=== PATIENT | male | born 1960 | race Two or more races ===

== ENCOUNTER 2023-03-29 10:50 | Inpatient (IN) | payer OTHER ==
[2023-03-29] MEDS ORDERED: ACETAMINOPHEN 1000 MG/100 ML BAG IVPB ONE (12:29)
[2023-03-29] MEDS ORDERED: ACETAMINOPHEN INJECTION 100 ML IVPB ONE (12:47)
[2023-03-29 12:55] LABS: BASO % 0.3 % (0-2.0); EOS % 2.7 % (0-4.5); HEMATOCRIT 34.6 % (35.4-49); HEMOGLOBIN 11.6 GM/dL (11.7-16.9); LYMPH % 20.1 % (8-40); MCH 30.5 pg (25.7-33.7); MCHC 33.4 g/dl (32.0-35.9); MEAN CELL VOLUME 91.3 fl (80-96); MEAN PLT VOLUME 7.9 fl (7.5-11.1); NEUT % 67.9 % (42.8-82.8); PLATELET COUNT 187 10^3/uL (134-434); RBC 3.79 M/mm3 (4.00-5.60); RDW 14.9 % (11.9-15.9); WHITE BLOOD COUNT 10.6 K/mm3 (4.0-10.0)
[2023-03-29 13:12] LABS: VENOUS BASE EXCESS -4.1 mmol/L (-2-2); VENOUS O2 SATURATION 76.8 % (70-80); VENOUS PCO2 39.9 mmHg (38-52); VENOUS PH 7.344 (7.310-7.410)
[2023-03-29 13:17] LABS: CHLORIDE 104 mmol/L (98-107); POTASSIUM 5.9 mmol/L (3.5-5.1); SODIUM 137 mmol/L (136-145)
[2023-03-29 13:20] LABS: ALBUMIN 3.6 g/dl (3.4-5.0); ANION GAP 8 MMOL/L (8-16); BLOOD UREA NITROGEN 61.7 mg/dL (7-18); CALCIUM 9.2 mg/dL (8.5-10.1); CO2 25 mmol/L (21-32); GLUCOSE,RANDOM 97 mg/dL (74-106); MAGNESIUM 2.4 mg/dL (1.8-2.4)
[2023-03-29 13:23] LABS: PHOSPHOROUS 5.4 mg/dL (2.5-4.9); SGOT/AST 114 U/L (15-37); SGPT/ALT 329 U/L (13-61)
[2023-03-29 13:25] LABS: BILIRUBIN,TOTAL 0.6 mg/dL (0.2-1); TOT PROT 7.6 g/dl (6.4-8.2)
[2023-03-29 13:26] LABS: ALK PHOS 159 U/L (45-117)
[2023-03-29 13:28] LABS: N-TERMINAL BNP 1703.5 pg/ml (5-125)
[2023-03-29 13:30] LABS: CREATININE 11.6 mg/dL (0.55-1.3)
[2023-03-29] MEDS ORDERED: CALCIUM GLUCONATE 10% - 1,000 MG/10 ML VIAL IVPB ONE (13:34)
[2023-03-29] MEDS ORDERED: INSULIN REGULAR HUMAN 100 UNITS/ML *VIAL IVPUSH ONE (13:34)
[2023-03-29] MEDS ORDERED: DEXTROSE 50%-WATER - 25 GM/50 ML VIAL IVPUSH ONE (13:35)
[2023-03-29] MEDS ORDERED: SODIUM ZIRCONIUM CYCLOSILICATE (LOKELMA) 5 GM PACKET PO ONE (13:36)
[2023-03-29] MEDS ORDERED: SODIUM ZIRCONIUM CYCLOSILICATE (LOKELMA) 10 GM PACKET ONE (13:52)
[2023-03-29] MEDS ORDERED: CALCIUM GLUC IN NACL, ISO-OSM 1 GM/50 ML BAG IVPB ONE ×2 (13:52→13:57)
[2023-03-29] MEDS ORDERED: DEXTROSE 50%-WATER 25 GM/50 ML DISP.SYRIN ONE (13:52)
[2023-03-29] MEDS ORDERED: SODIUM ZIRCONIUM CYCLOSILICATE (LOKELMA) 5 GM PACKET ONE (13:56)
[2023-03-29] MEDS ORDERED: VANCOMYCIN 1,000 MG in DEXTROSE 5%-WATER - 250 ML IVPB ONE (19:13)
[2023-03-29] MEDS ORDERED: VANCOMYCIN/WATER FOR INJ (PEG) 1,000 MG/200 ML BAG IVPB ONE (20:15)
[2023-03-29] MEDS ORDERED: SODIUM CHLORIDE 250 ML IV PRN (21:53)
[2023-03-30 06:52] LABS: HEMATOCRIT 36.4 % (35.4-49); HEMOGLOBIN 12.1 GM/dL (11.7-16.9); MCH 30.7 pg (25.7-33.7); MCHC 33.1 g/dl (32.0-35.9); MEAN CELL VOLUME 92.8 fl (80-96); MEAN PLT VOLUME 7.8 fl (7.5-11.1); PLATELET COUNT 207 10^3/uL (134-434); RBC 3.92 M/mm3 (4.00-5.60); RDW 14.7 % (11.9-15.9); WHITE BLOOD COUNT 11.3 K/mm3 (4.0-10.0)
[2023-03-30 07:15] LABS: CHLORIDE 101 mmol/L (98-107); SODIUM 134 mmol/L (136-145)
[2023-03-30 07:18] LABS: ALBUMIN 3.5 g/dl (3.4-5.0); BLOOD UREA NITROGEN 71.6 mg/dL (7-18); GLUCOSE,RANDOM 92 mg/dL (74-106)
[2023-03-30 07:20] LABS: CO2 22 mmol/L (21-32); MAGNESIUM 2.2 mg/dL (1.8-2.4)
[2023-03-30 07:21] LABS: PHOSPHOROUS 5.6 mg/dL (2.5-4.9); SGOT/AST 109 U/L (15-37); SGPT/ALT 302 U/L (13-61)
[2023-03-30 07:23] LABS: BILIRUBIN,TOTAL 0.8 mg/dL (0.2-1); TOT PROT 7.5 g/dl (6.4-8.2)
[2023-03-30 07:24] LABS: ALK PHOS 161 U/L (45-117)
[2023-03-30 07:27] LABS: ANION GAP 12 MMOL/L (8-16); CREATININE 12.7 mg/dL (0.55-1.3)
[2023-03-30] MEDS ORDERED: INSULIN REGULAR HUMAN 100 UNITS/ML *VIAL IVPUSH ONE (07:53)
[2023-03-30] MEDS ORDERED: CALCIUM GLUCONATE 10% - 1,000 MG/10 ML VIAL IVPB ONE (07:53)
[2023-03-30] MEDS ORDERED: SODIUM BICARBONATE 8.4% 50 MEQ/50 ML DISP.SYRIN IVPUSH ONE (07:53)
[2023-03-30] MEDS ORDERED: DEXTROSE 50%-WATER - 25 GM/50 ML VIAL IVPUSH ONE (07:53)
[2023-03-30] MEDS ORDERED: DEXTROSE 50%-WATER 25 GM/50 ML DISP.SYRIN ONE (08:06)
[2023-03-30] MEDS ORDERED: SODIUM BICARBONATE 8.4% 50 MEQ/50 ML DISP.SYRIN ONE (08:07)
[2023-03-30] MEDS ORDERED: CALCIUM GLUC IN NACL, ISO-OSM 1 GM/50 ML BAG IVPB ONE (08:07)
[2023-03-30] MEDS ORDERED: HEPARIN NA (PORCINE) 5,000 UNITS/ML 1ML VIAL IV ONE (12:06)
[2023-03-30 14:25] VITALS: BMI 29.4
[2023-03-30] MEDS ORDERED: CLINDAMYCIN 600MG PREMIX IVPB 600 MG/50 ML BAG IVPB SCH (15:15)
[2023-03-30] MEDS: MEROPENEM 1 GM in DEXTROSE 5%-WATER 100 ML IVPB SCH (16:27)
[2023-03-30] MEDS: CLINDAMYCIN 600MG PREMIX IVPB 600 MG/50 ML BAG IVPB SCH (18:18)
[2023-03-31] MEDS: CLINDAMYCIN 600MG PREMIX IVPB 600 MG/50 ML BAG IVPB SCH ×3 (02:59→17:55)
[2023-03-31] MEDS: MEROPENEM 1 GM in DEXTROSE 5%-WATER 100 ML IVPB SCH ×3 (02:59→18:55)
[2023-03-31 11:56] LABS: CHLORIDE 100 mmol/L (98-107); POTASSIUM 4.6 mmol/L (3.5-5.1); SODIUM 139 mmol/L (136-145)
[2023-03-31 13:08] LABS: SGPT/ALT 236 U/L (13-61)
[2023-03-31 13:12] LABS: CALCIUM 8.8 mg/dL (8.5-10.1)
[2023-03-31 13:13] LABS: ALBUMIN 3.4 g/dl (3.4-5.0); ANION GAP 10 MMOL/L (8-16); BLOOD UREA NITROGEN 48.9 mg/dL (7-18); CO2 29 mmol/L (21-32); GLUCOSE,RANDOM 120 mg/dL (74-106)
[2023-03-31 13:16] LABS: BILIRUBIN,TOTAL 0.7 mg/dL (0.2-1); SGOT/AST 103 U/L (15-37)
[2023-03-31 13:18] LABS: TOT PROT 6.8 g/dl (6.4-8.2)
[2023-03-31 13:37] LABS: ALK PHOS 124 U/L (45-117); CREATININE 9.8 mg/dL (0.55-1.3)
[2023-04-01 00:01] LABS: COCAINE, UR NEGATIVE (NEGATIVE); OPIATES, URI NEGATIVE (NEGATIVE)
[2023-04-01 00:02] LABS: URINE BARBITURATES NEGATIVE (NEGATIVE)
[2023-04-01 00:04] LABS: URINE BENZODIAZEPINES NEGATIVE (NEGATIVE)
[2023-04-01 00:45] LABS: METHADONE, UR NEGATIVE (NEGATIVE); PHENCYCLIDINE,URINE NEGATIVE (NEGATIVE); URINE AMPHETAMINES NEGATIVE (NEGATIVE)
[2023-04-01] MEDS: CLINDAMYCIN 600MG PREMIX IVPB 600 MG/50 ML BAG IVPB SCH ×3 (01:58→18:24)
[2023-04-01] MEDS: MEROPENEM 1 GM in DEXTROSE 5%-WATER 100 ML IVPB SCH ×3 (01:58→21:12)
[2023-04-01] MEDS ORDERED: SODIUM CHLORIDE 250 ML IV PRN ×2 (07:14→10:21)
[2023-04-01] MEDS ORDERED: HEPARIN NA (PORCINE) 5,000 UNITS/ML 1ML VIAL IVPUSH ONE (07:15)
[2023-04-01 08:48] LABS: BASO % 0.4 % (0-2.0); EOS % 5.2 % (0-4.5); HEMATOCRIT 32.4 % (35.4-49); HEMOGLOBIN 10.7 GM/dL (11.7-16.9); LYMPH % 12.3 % (8-40); MCH 30.5 pg (25.7-33.7); MEAN CELL VOLUME 92.5 fl (80-96); MEAN PLT VOLUME 7.8 fl (7.5-11.1); MONO % 8.8 % (3.8-10.2); NEUT % 73.3 % (42.8-82.8); PLATELET COUNT 167 10^3/uL (134-434); RBC 3.51 M/mm3 (4.00-5.60); RDW 14.6 % (11.9-15.9); WHITE BLOOD COUNT 8.5 K/mm3 (4.0-10.0)
[2023-04-01 09:02] LABS: CHLORIDE 100 mmol/L (98-107); POTASSIUM 4.4 mmol/L (3.5-5.1); SODIUM 137 mmol/L (136-145)
[2023-04-01 09:09] LABS: ALBUMIN 3.4 g/dl (3.4-5.0); ANION GAP 12 MMOL/L (8-16); BLOOD UREA NITROGEN 58.5 mg/dL (7-18); CALCIUM 8.3 mg/dL (8.5-10.1); CO2 25 mmol/L (21-32); GLUCOSE,RANDOM 124 mg/dL (74-106)
[2023-04-01 09:12] LABS: SGOT/AST 133 U/L (15-37); SGPT/ALT 242 U/L (13-61)
[2023-04-01 09:14] LABS: BILIRUBIN,TOTAL 0.7 mg/dL (0.2-1); TOT PROT 6.7 g/dl (6.4-8.2)
[2023-04-01 09:15] LABS: ALK PHOS 119 U/L (45-117)
[2023-04-01 09:27] LABS: CREATININE 11.3 mg/dL (0.55-1.3)
[2023-04-01] MEDS ORDERED: ACETAMINOPHEN 325 MG TABLET (FP) PO PRN (16:37)
[2023-04-02] MEDS: CLINDAMYCIN 600MG PREMIX IVPB 600 MG/50 ML BAG IVPB SCH ×2 (00:59→12:19)
[2023-04-02] MEDS: MEROPENEM 1 GM in DEXTROSE 5%-WATER 100 ML IVPB SCH ×3 (02:57→17:00)
[2023-04-02] MEDS: amLODIPine BESYLATE 5 MG TABLET (FP) PO SCH (17:56)
[2023-04-03] MEDS: MEROPENEM 1 GM in DEXTROSE 5%-WATER 100 ML IVPB SCH ×3 (02:08→17:20)
[2023-04-03 08:10] LABS: BASO % 0.3 % (0-2.0); EOS % 11.1 % (0-4.5); HEMOGLOBIN 11.5 GM/dL (11.7-16.9); MCH 31.2 pg (25.7-33.7); MCHC 34.8 g/dl (32.0-35.9); MEAN CELL VOLUME 89.5 fl (80-96); MEAN PLT VOLUME 7.3 fl (7.5-11.1); MONO % 12.9 % (3.8-10.2); NEUT % 53.7 % (42.8-82.8); PLATELET COUNT 161 10^3/uL (134-434); RBC 3.68 M/mm3 (4.00-5.60); RDW 14.5 % (11.9-15.9); WHITE BLOOD COUNT 7.8 K/mm3 (4.0-10.0)
[2023-04-03 08:30] LABS: CHLORIDE 100 mmol/L (98-107); POTASSIUM 4.1 mmol/L (3.5-5.1); SODIUM 140 mmol/L (136-145)
[2023-04-03 08:51] LABS: CALCIUM 8.4 mg/dL (8.5-10.1)
[2023-04-03 08:52] LABS: ALBUMIN 3.3 g/dl (3.4-5.0); ANION GAP 12 MMOL/L (8-16); BLOOD UREA NITROGEN 37.3 mg/dL (7-18); CO2 28 mmol/L (21-32); GLUCOSE,RANDOM 87 mg/dL (74-106)
[2023-04-03 08:55] LABS: SGOT/AST 165 U/L (15-37); SGPT/ALT 256 U/L (13-61)
[2023-04-03 08:56] LABS: BILIRUBIN,TOTAL 0.6 mg/dL (0.2-1); TOT PROT 7.1 g/dl (6.4-8.2)
[2023-04-03 08:57] LABS: ALK PHOS 119 U/L (45-117); CREATININE 7.6 mg/dL (0.55-1.3)
[2023-04-03] MEDS: amLODIPine BESYLATE 5 MG TABLET (FP) PO SCH (09:47)
[2023-04-03] MEDS: SEVELAMER CARBONATE 800 MG TAB (FP) PO SCH ×2 (12:24→17:20)
[2023-04-04] MEDS: CLINDAMYCIN 600MG PREMIX IVPB 600 MG/50 ML BAG IVPB SCH ×3 (02:23→17:52)
[2023-04-04] MEDS: VITAMIN B COMP W-C 1 EA TABLET (NEPHRO-VITE) PO SCH (09:37)
[2023-04-04] MEDS: amLODIPine BESYLATE 5 MG TABLET (FP) PO SCH (09:37)
[2023-04-04] MEDS: AZTREONAM 1 GM in DEXTROSE 5%-WATER - 50 ML IVPB SCH (09:38)
[2023-04-04] MEDS ORDERED: AZTREONAM 1 GM VIAL (RESTRICTED TO ID) ONE (09:41)
[2023-04-04] MEDS: SEVELAMER CARBONATE 800 MG TAB (FP) PO SCH ×3 (09:42→17:52)
[2023-04-05] MEDS: CLINDAMYCIN 600MG PREMIX IVPB 600 MG/50 ML BAG IVPB SCH ×3 (02:18→18:31)
[2023-04-05 07:57] LABS: CHLORIDE 101 mmol/L (98-107); POTASSIUM 4.3 mmol/L (3.5-5.1); SODIUM 140 mmol/L (136-145)
[2023-04-05 08:01] LABS: CALCIUM 7.8 mg/dL (8.5-10.1)
[2023-04-05 08:02] LABS: ANION GAP 14 MMOL/L (8-16); BLOOD UREA NITROGEN 60.2 mg/dL (7-18); CO2 24 mmol/L (21-32); GLUCOSE,RANDOM 90 mg/dL (74-106)
[2023-04-05 08:20] LABS: CREATININE 11.4 mg/dL (0.55-1.3)
[2023-04-05] MEDS: SEVELAMER CARBONATE 800 MG TAB (FP) PO SCH ×3 (08:20→16:36)
[2023-04-05] MEDS: amLODIPine BESYLATE 5 MG TABLET (FP) PO SCH (12:33)
[2023-04-05] MEDS: VITAMIN B COMP W-C 1 EA TABLET (NEPHRO-VITE) PO SCH (12:33)
[2023-04-05] MEDS: AZTREONAM 1 GM in DEXTROSE 5%-WATER - 50 ML IVPB SCH (12:33)
[2023-04-05 12:36] LABS: HEMATOCRIT 30.3 % (35.4-49); HEMOGLOBIN 10.2 GM/dL (11.7-16.9); MCH 30.3 pg (25.7-33.7); MCHC 33.6 g/dl (32.0-35.9); MEAN CELL VOLUME 90.1 fl (80-96); MEAN PLT VOLUME 7.5 fl (7.5-11.1); PLATELET COUNT 173 10^3/uL (134-434); RBC 3.37 M/mm3 (4.00-5.60); RDW 14.9 % (11.9-15.9); WHITE BLOOD COUNT 7.2 K/mm3 (4.0-10.0)
[2023-04-05 12:46] LABS: ALBUMIN 3.1 g/dl (3.4-5.0)
[2023-04-05 12:49] LABS: PHOSPHOROUS 8.1 mg/dL (2.5-4.9); SGOT/AST 113 U/L (15-37); SGPT/ALT 171 U/L (13-61)
[2023-04-05 12:50] LABS: BILIRUBIN,TOTAL 0.5 mg/dL (0.2-1); TOT PROT 6.7 g/dl (6.4-8.2)
[2023-04-05 12:52] LABS: ALK PHOS 106 U/L (45-117)
[2023-04-05 12:57] LABS: ANISOCYTOSIS 0; HELMET CELLS 0; HOWELL-JOLLY BODIES 0; MACROCYTOSIS 0; OVALOCYTE 0; ROULEAU 0; SICKELED CELLS 0; TARGET CELLS 0; TEAR DROP CELLS 0; TOXIC GRANULATION 0
[2023-04-05 13:51] LABS: GAMMA GLUTAMYL TRANSPEPTIDASE 251 U/L (5-85)
[2023-04-06] MEDS: CLINDAMYCIN 600MG PREMIX IVPB 600 MG/50 ML BAG IVPB SCH ×2 (01:09→09:23)
[2023-04-06 07:50] LABS: HEMATOCRIT 33.3 % (35.4-49); MCH 30.6 pg (25.7-33.7); MCHC 33.2 g/dl (32.0-35.9); MEAN CELL VOLUME 92.1 fl (80-96); MEAN PLT VOLUME 7.7 fl (7.5-11.1); PLATELET COUNT 207 10^3/uL (134-434); RBC 3.61 M/mm3 (4.00-5.60); RDW 14.6 % (11.9-15.9); WHITE BLOOD COUNT 8.2 K/mm3 (4.0-10.0)
[2023-04-06 08:12] LABS: CHLORIDE 102 mmol/L (98-107); POTASSIUM 4.3 mmol/L (3.5-5.1); SODIUM 142 mmol/L (136-145)
[2023-04-06 08:27] LABS: INR 1.1 (0.83-1.09); PROTHROMBIN TIME (PATIENT) 12.8 SEC (9.7-13.0)
[2023-04-06 08:30] LABS: ALK PHOS 112 U/L (45-117)
[2023-04-06 08:31] LABS: ALBUMIN 3.4 g/dl (3.4-5.0); BILIRUBIN,TOTAL 0.7 mg/dL (0.2-1); BLOOD UREA NITROGEN 47.3 mg/dL (7-18); CALCIUM 7.9 mg/dL (8.5-10.1); GLUCOSE,RANDOM 77 mg/dL (74-106); SGOT/AST 162 U/L (15-37)
[2023-04-06 08:32] LABS: ANION GAP 11 MMOL/L (8-16); CO2 29 mmol/L (21-32); SGPT/ALT 195 U/L (13-61); TOT PROT 7.1 g/dl (6.4-8.2)
[2023-04-06 08:34] LABS: BILIRUBIN,DIRECT 0.3 mg/dL (0.0-0.2)
[2023-04-06 08:47] LABS: CREATININE 8.1 mg/dL (0.55-1.3)
[2023-04-06 09:02] LABS: ANISOCYTOSIS 0; HELMET CELLS 0; HOWELL-JOLLY BODIES 0; MACROCYTOSIS 0; OVALOCYTE 0; ROULEAU 0; SICKELED CELLS 0; TARGET CELLS 0; TEAR DROP CELLS 0; TOXIC GRANULATION 0
[2023-04-06] MEDS: SEVELAMER CARBONATE 800 MG TAB (FP) PO SCH ×3 (09:21→17:15)
[2023-04-06] MEDS: VITAMIN B COMP W-C 1 EA TABLET (NEPHRO-VITE) PO SCH (09:23)
[2023-04-06] MEDS: amLODIPine BESYLATE 5 MG TABLET (FP) PO SCH (09:23)
[2023-04-06] MEDS: AZTREONAM 1 GM in DEXTROSE 5%-WATER - 50 ML IVPB SCH (09:33)
[2023-04-07 03:41] VITALS: RESP 18
[2023-04-07 09:48] LABS: HEMOGLOBIN 10.1 GM/dL (11.7-16.9); MCH 30.6 pg (25.7-33.7); MCHC 33.5 g/dl (32.0-35.9); MEAN CELL VOLUME 91.3 fl (80-96); MEAN PLT VOLUME 7.7 fl (7.5-11.1); PLATELET COUNT 207 10^3/uL (134-434); RBC 3.29 M/mm3 (4.00-5.60); RDW 14.3 % (11.9-15.9); WHITE BLOOD COUNT 7.2 K/mm3 (4.0-10.0)
[2023-04-07] MEDS ORDERED: SODIUM CHLORIDE 250 ML IV PRN (10:03)
[2023-04-07] MEDS ORDERED: HEPARIN NA (PORCINE) 5,000 UNITS/ML 1ML VIAL IVPUSH ONE (11:00)
[2023-04-07] MEDS: AZTREONAM 1 GM in DEXTROSE 5%-WATER - 50 ML IVPB SCH (12:49)
[2023-04-07] MEDS: SEVELAMER CARBONATE 800 MG TAB (FP) PO SCH ×2 (12:49)
[2023-04-07] MEDS: amLODIPine BESYLATE 5 MG TABLET (FP) PO SCH (12:50)
[2023-04-07] MEDS: VITAMIN B COMP W-C 1 EA TABLET (NEPHRO-VITE) PO SCH (12:50)
[2023-04-07 13:00] VITALS: BP 139/90; PULSE 78; TEMP 98.7
[2023-04-07 13:24] LABS: IRON SERUM 107 ug/dL (50-175)
[2023-04-07 13:25] LABS: TOTAL IRON BINDING CAPACITY 145 ug/dL (250-450)
[2023-04-07 15:28] LABS: CALCIUM 7.8 mg/dL (8.5-10.1); CHLORIDE 103 mmol/L (98-107); POTASSIUM 4.4 mmol/L (3.5-5.1); SODIUM 141 mmol/L (136-145)
[2023-04-07 15:30] LABS: ANION GAP 12 MMOL/L (8-16); BLOOD UREA NITROGEN 60.7 mg/dL (7-18); CO2 27 mmol/L (21-32); GLUCOSE,RANDOM 82 mg/dL (74-106)
[2023-04-07 15:37] LABS: CREATININE 9.9 mg/dL (0.55-1.3)
[2023-04-08 18:12] LABS: GLIADIN ANTIBODY IGA 5 units (0-19); GLIADIN ANTIBODY IGG 2 units (0-19); TRANSGLUTAMINASE IGG < 2 U/mL (0-5)
[2023-04-10 18:08] LABS: HCV RNA GENOTYPE 1a (.)
== END 2023-04-07 15:17 | disposition home or self-care (01) | DRG 811 ==
LOC: JER 10:50 → JERBED 15:12 → J4W 03-30 14:01
PROVIDERS: ADMIT Student in an Organized Health Care Education/Training Program; ATTEND Internal Medicine
PROC: 5A1D70Z Performance of Urinary Filtration, Intermittent, Less than 6 Hours Per Day (ICD-10-PCS; principal; 2023-04-01)
PROC: 5A1D70Z Performance of Urinary Filtration, Intermittent, Less than 6 Hours Per Day (ICD-10-PCS; 2023-04-02)
PROC: 5A1D70Z Performance of Urinary Filtration, Intermittent, Less than 6 Hours Per Day (ICD-10-PCS; 2023-04-05)
PROC: 5A1D70Z Performance of Urinary Filtration, Intermittent, Less than 6 Hours Per Day (ICD-10-PCS; 2023-04-07)
DX: T78.3XXA Angioneurotic edema, initial encounter (principal); R22.1 Localized swelling, mass and lump, neck; R22.0 Localized swelling, mass and lump, head; I12.0 Hypertensive chronic kidney disease with stage 5 chronic kidney disease or end stage renal disease; N18.6 End stage renal disease; B19.20 Unspecified viral hepatitis C without hepatic coma; E87.5 Hyperkalemia; I45.10 Unspecified right bundle-branch block; D64.9 Anemia, unspecified; D72.19 Other eosinophilia; E78.5 Hyperlipidemia, unspecified; R74.8 Abnormal levels of other serum enzymes; T50.8X5A Adverse effect of diagnostic agents, initial encounter; R50.9 Fever, unspecified
CPT/HCPCS: 0241U-QW; 36415; 70360-TC-FY; 70492-TC; 71045-TC-FY; 71270-TC; 76705-TC; 80048; 80053; 80076; 80307; 82105; 82550; 82728; 82784; 82803; 82977; 83516; 83540; 83550; 83735; 83880; 84100; 84132; 84443; 84484; 85025; 85027; 85610; 86038; 86704; 86708; 86709; 86803; 87040; 87340; 87517; 87522; 87902; 93005; 93010; 99291; J1644; Q9967

== ENCOUNTER 2023-05-03 13:35 | Emergency (ER) | payer OTHER ==
[2023-05-03 13:56] VITALS: BMI 25.7
[2023-05-03] MEDS ORDERED: ACETAMINOPHEN 500 MG TABLET (FP) PO ONE (15:43)
[2023-05-03] MEDS ORDERED: LIDOCAINE 5% TOPICAL PATCH TP ONE (15:43)
[2023-05-03] MEDS ORDERED: LIDOCAINE 5% TOPICAL PATCH ONE (15:47)
[2023-05-03] MEDS ORDERED: ACETAMINOPHEN 325 MG TABLET (FP) ONE (15:47)
[2023-05-03 15:52] LABS: BASO % 0.6 % (0-2.0); EOS % 5.1 % (0-4.5); HEMATOCRIT 30.9 % (35.4-49); HEMOGLOBIN 10.6 GM/dL (11.7-16.9); LYMPH % 31.7 % (8-40); MCH 31.4 pg (25.7-33.7); MCHC 34.4 g/dl (32.0-35.9); MEAN CELL VOLUME 91.2 fl (80-96); NEUT % 48.6 % (42.8-82.8); PLATELET COUNT 163 10^3/uL (134-434); RBC 3.39 M/mm3 (4.00-5.60); RDW 14.6 % (11.9-15.9); WHITE BLOOD COUNT 5.8 K/mm3 (4.0-10.0)
[2023-05-03 16:23] LABS: POTASSIUM 3.9 mmol/L (3.5-5.1)
[2023-05-03 16:25] LABS: CALCIUM 8.4 mg/dL (8.5-10.1)
[2023-05-03 16:26] LABS: ALBUMIN 3.5 g/dl (3.4-5.0); MAGNESIUM 2.1 mg/dL (1.8-2.4)
[2023-05-03 16:27] LABS: THROAT:GRP A STREP NOT DETECTED (NOTDETECTED)
[2023-05-03 16:29] LABS: CREATININE 6.7 mg/dL (0.55-1.3)
[2023-05-03 16:30] LABS: BILIRUBIN,TOTAL 0.8 mg/dL (0.2-1); TOT PROT 7.8 g/dl (6.4-8.2)
[2023-05-03] MEDS ORDERED: VANCOMYCIN 1,000 MG in DEXTROSE 5%-WATER - 250 ML IVPB ONE (18:12)
[2023-05-03] MEDS ORDERED: VANCOMYCIN 1 GRAM (PRE-DOCKED) 1,000 MG/250 ML BAG IVPB ONE (18:18)
[2023-05-03] MEDS ORDERED: LIDOCAINE PATCH REMOVAL MC ONE (22:00)
[2023-05-03 22:43] VITALS: BP 101/61; PULSE 59; RESP 16; TEMP 98
== END 2023-05-03 22:44 | disposition short-term general hospital (02) ==
LOC: JER 13:35
DX: R22.1 Localized swelling, mass and lump, neck (principal); R74.01 Elevation of levels of liver transaminase levels; I12.0 Hypertensive chronic kidney disease with stage 5 chronic kidney disease or end stage renal disease; N18.6 End stage renal disease; M54.2 Cervicalgia; Z20.822 Contact with and (suspected) exposure to COVID-19
CPT/HCPCS: 0241U-QW; 36415; 70491-TC; 71260-TC; 80053; 83735; 83880; 84484; 85025; 87651; 93005; 93010; 99285-25